=== PATIENT | male | born 1970 ===

== ENCOUNTER 2023-09-17 11:08 | Outpatient (CLI) | payer MEDICARE, MEDICAID, OTHER ==
[2023-09-17] MEDS ORDERED: iohexol 300mg/ml 100ml inj. ONE (11:24)
== END 2023-09-17 23:59 | disposition home or self-care (01) ==
LOC: RAD 11:08
PROVIDERS: ATTEND Internal Medicine
DX: R22.9 Localized swelling, mass and lump, unspecified (principal); J96.20 Acute and chronic respiratory failure, unspecified whether with hypoxia or hypercapnia; J44.9 Chronic obstructive pulmonary disease, unspecified; J38.02 Paralysis of vocal cords and larynx, bilateral; M50.30 Other cervical disc degeneration, unspecified cervical region; M48.02 Spinal stenosis, cervical region
CPT/HCPCS: 70492; J3490; Q9967